=== PATIENT | male | born 1960 | race Caucasian/White ===

== ENCOUNTER 2017-06-06 17:44 | Emergency (ER) | payer OTHER ==
[~2017-06-06] VITALS: Ht 180.3 cm; Wt 97.0 kg
[2017-06-06 18:25] LABS: HEMATOCRIT 44.2 % (38.0-50.0); HEMOGLOBIN 15.4 G/DL (12.5-16.6); MCH 32.4 PG (29.0-34.0); MCHC 34.8 G/DL (30.0-36.0); MCV 93.1 FL (86-99); PLATELET COUNT 261 K/uL (156-360); RBC DIS.WIDTH-CV 11.8 % (11.8-14.6); RBC DIS.WIDTH-SD 40.7 % (39-53); RED BLOOD COUNT 4.75 M/uL (4.00-5.50); WHITE BLOOD COUNT 8.3 K/uL (4.1-10.2)
[2017-06-06 18:34] LABS: ALBUMIN 4.8 g/dL (3.2-4.8)
[2017-06-06 18:35] LABS: CHLORIDE 104 mEq/L (99-109); POTASSIUM 4.2 mEq/L (3.7-5.4); SODIUM 138 mEq/L (136-147)
[2017-06-06 18:37] LABS: GLUCOSE 100 mg/dL (70-99); TOTAL PROTEIN 7.9 g/dL (6.4-8.3)
[2017-06-06 18:40] LABS: ALKALINE PHOSPHATASE 58 IU/L (3-129)
[2017-06-06 18:41] LABS: GFR ESTIMATE (CALCULATED) > 59 mL/min/ (58.99-99999)
[2017-06-06 18:42] LABS: AST (GOT) 29 IU/L (2-34); UREA NITROGEN (BUN) 14 mg/dL (9-23)
[2017-06-06 18:44] LABS: ALT (GPT) 44 IU/L (3-49)
[2017-06-06 19:07] LABS: APPEARANCE CLEAR ((CLEAR)); BILIRUBIN NEGATIVE; BLOOD NEGATIVE; COLOR YELLOW ((YELLOW)); GLUCOSE (STRIP) NEGATIVE; KETONES NEGATIVE; LEUKOCYTES NEGATIVE; NITRITE NEGATIVE; PROTEIN (STRIP) NEGATIVE; SPECIFIC GRAVITY 1.014 (1.000-1.030); UCUL ADDED? NO; UROBILINOGEN 0.2 MG/DL (0.2-1.0)
[2017-06-06 20:14] LABS: LIPASE 21 U/L (1.0-51.0)
[2017-06-06] MEDS ORDERED: ZOFRAN ODT4 MG PO (21:18)
[2017-06-06] MEDS ORDERED: PERCOCET 5/31 TABLET PO (21:18)
[2017-06-06] MEDS ORDERED: FLAGYL500 MG PO (21:18)
[2017-06-06] MEDS ORDERED: CIPRO500 MG PO (21:18)
[2017-06-06 21:53] VITALS: BP 138/82
== END 2017-06-06 21:56 | disposition home or self-care (01) ==
LOC: EME 17:44
DX: K57.92 Diverticulitis of intestine, part unspecified, without perforation or abscess without bleeding (principal); Z88.0 Allergy status to penicillin
CPT/HCPCS: 74177; 80053; 81003; 83690; 85027; 99281; 99285; J7030